=== PATIENT | male | born 1950 | race Caucasian/White ===

== ENCOUNTER → 2017-08-12 14:32 | Outpatient (POV) | payer MEDICARE, SELFPAY | PROVIDERS: Visit Provider Nurse Practitioner Acute Care | DX: Z00.00 Encounter for general adult medical examination without abnormal findings (principal) ==

== ENCOUNTER 2017-09-23 08:45 | Day surgery (SDC) | payer MEDICARE, SELFPAY ==
[2017-09-17 09:35] VITALS: BMI 33.4
[2017-09-23] VITALS (7 sets, daily range): BP systolic 99–141; BP diastolic 58–79; PULSE 50–69; RESP 18–20; TEMP 36.9–37; O2SAT 96–99
--- NOTE | 2017-09-23 10:25 | P.PCN_ITS ---
[facility] Procedure Note Procedure Note:: Upper Endoscopy Procedure Report: Esophagogastroduodenoscopy with cold biopsies Endoscopost: Rell Marques II, MD Referring Physician: Omid Gamino MD Date of Procedure: September 23, 2017 Equipment: Olympus GIF 180 standard upper endoscope Sedation: MAC sedation Indications: Mr. Louie is a 67-year-old gentleman dyspepsia. He reports epigastric and some lower abdominal comfort. He reports bloating, belching and some early satiety. He reports no nausea or dysphagia. He has had some weight loss. He reports no melena. He does have some obstipation which improved with the fiber bowel regimen (MiraLAX plus Metamucil) and probiotics. 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 He did have panendoscopy with Dr. Omid Gamino in October 2016. Procedure: Prior to the procedure, a history and physical exam was performed, and patient' s medications and allergies were reviewed. The risks, benefits and alternatives of the sedation and procedure were discussed with the patient. All questions were answered and informed consent was obtained. The patient was brought to the procedure room. Patient identification and proposed procedure were verified by the physician and the nurse. The patient was placed in a left lateral decubitus position and the scope was passed under direct vision. Throughout the procedure, the patient's blood pressure, pulse, and oxygen saturations were monitored continuously. The upper GI endoscopy was accomplished without difficulty. The patient tolerated the procedure well. Findings: The scope was passed directly into the upper esophagus and advanced to the third portion of the duodenum. The post bulbar duodenum and duodenal bulb were normal with normal mucosa and conniventes. The scope was withdrawn through a normal duodenal bulb and pylorus into the stomach. There was moderate bile reflux with linear erythema of the antrum and body of the stomach. The remainder of the antrum, body and fundus of the stomach were grossly normal. Upon retroflexion there was a very small 1-2 cm hiatal hernia. 2 biopsies were taken in the antrum and along the lesser curvature for histology to rule out gastritis and/or H pylori. The scope was then withdrawn into the esophagus. There was no evidence of reflux esophagitis. There was a serrated Z line and biopsies were taken at the squamocolumnar junction to rule out intestinal metaplasia. There were some tertiary contractions and mild esophageal dysmotility. The remainder of the esophageal mucosa was normal. Impression: 1. Nonerosive GERD with mild esophageal dysmotility and very small sliding hiatal hernia 2. Bile reflux with moderate linear reactive gastritis Plan: I will follow up the biopsies. I do feel that the patient has functional dyspepsia and functional bowel disease with some SIBO. I will discuss additional dietary measures and treatment options. I will proceed with colonoscopy for further evaluation.
--- NOTE | 2017-09-23 10:47 | HMH.PROC ---
[facility] Procedure Note Procedure Note:: Colonoscopy Procedure Report: Colonoscopy with cold snare polypectomy Endoscopist: Rell Marques II, MD Referring physician: Omid Gamino MD Date of Procedure: September 23, 2017 Equipment: Olympus 180 variable stiffness pediatric colonoscope Sedation: MAC sedation Indication: Mr. Louie is a 67-year-old gentleman with epigastric and some lower abdominal pain and discomfort. The patient has had some obstipation and intentional weight loss. He reports no rectal bleeding or family history of colon cancer. He did have a colonoscopy in October 2016 and had left-sided diverticulosis but no colon polyps. Because of his pain and weight loss, colonoscopy is repeated diagnostically. Procedure: Prior to the procedure, a history and physical exam was performed, and patient's medications and allergies were reviewed. The risks, benefits and alternatives of the sedation and procedure were discussed with the patient. All questions were answered and informed consent was obtained. The patient was brought to the procedure room. Patient identification and proposed procedure were verified by the physician and the nurse. The patient was placed in a left lateral decubitus position and the scope was passed under direct vision. Throughout the procedure, the patient's blood pressure, pulse, and oxygen saturations were monitored continuously. The colonoscopy was accomplished without difficulty. The patient tolerated the procedure well. Findings: On digital rectal examination there was normal rectal tone. There were no external hemorrhoids. The prostate was 1-2+, mildly firm but symmetric without nodules. The colonoscope was introduced through the anal canal to the rectum and advanced to the cecum. The ileocecal valve and appendiceal orifice were identified. The scope was advanced a short distance into the ileum which appeared grossly normal. The scope was then withdrawn into the colon. There were 2 colon polyps identified in the ascending colon ?2. These ranged in size from 7-8 mm and were all removed via cold snare polypectomy. There were scattered diverticuli throughout the descending and sigmoid colon (LEFT colon). The rectum itself was normal. Upon retroflexion within the rectum there were grade 1 internal hemorrhoids. Impression: 1. Colonic polyps ?2 2. Left-sided diverticulosis 3. Grade 1 internal hemorrhoids Plan: I would encourage the patient to resume fiber bowel regimen (MiraLAX plus Metamucil) and dietary measures. We will discuss additional treatment options. I will follow-up the polyp histology and recommend repeat screening/surveillance colonoscopy again in 5 years if the polyps are adenomatous.
--- NOTE | 2017-09-23 10:50 | P.PCN_ITS ---
[facility] Procedure Note Procedure Note:: Colonoscopy Procedure Report: Colonoscopy with cold snare polypectomy Endoscopist: Rell Marques II, MD Referring physician: Omid Gamino MD Date of Procedure: September 23, 2017 Equipment: Olympus 180 variable stiffness pediatric colonoscope Sedation: MAC sedation Indication: Mr. Louie is a 67-year-old gentleman with epigastric and some lower abdominal pain and discomfort. The patient has had some obstipation and intentional weight loss. He reports no rectal bleeding or family history of colon cancer. He did have a colonoscopy in October 2016 and had left-sided diverticulosis but no colon polyps. Because of his pain and weight loss, colonoscopy is repeated diagnostically. Procedure: Prior to the procedure, a history and physical exam was performed, and patient' s medications and allergies were reviewed. The risks, benefits and alternatives of the sedation and procedure were discussed with the patient. All questions were answered and informed consent was obtained. The patient was brought to the procedure room. Patient identification and proposed procedure were verified by the physician and the nurse. The patient was placed in a left lateral decubitus position and the scope was passed under direct vision. Throughout the procedure, the patient's blood pressure, pulse, and oxygen saturations were monitored continuously. The colonoscopy was accomplished without difficulty. The patient tolerated the procedure well. Findings: On digital rectal examination there was normal rectal tone. There were no external hemorrhoids. The prostate was 1-2+, mildly firm but symmetric without nodules. The colonoscope was introduced through the anal canal to the rectum and advanced to the cecum. The ileocecal valve and appendiceal orifice were identified. The scope was advanced a short distance into the ileum which appeared grossly normal. The scope was then withdrawn into the colon. There were 2 colon polyps identified in the ascending colon ?2. These ranged in size from 7-8 mm and were all removed via cold snare polypectomy. There were scattered diverticuli throughout the descending and sigmoid colon (LEFT colon). The rectum itself was normal. Upon retroflexion within the rectum there were grade 1 internal hemorrhoids. Impression: 1. Colonic polyps ?2 2. Left-sided diverticulosis 3. Grade 1 internal hemorrhoids Plan: I would encourage the patient to resume fiber bowel regimen (MiraLAX plus Metamucil) and dietary measures. We will discuss additional treatment options. I will follow-up the polyp histology and recommend repeat screening/ surveillance colonoscopy again in 5 years if the polyps are adenomatous.
--- NOTE | 2017-09-23 15:38 | P.PN_ITS ---
[facility] Anesthesia Checklist - Patient Identification Patient Identification: Arm Band - Structural Data Admitted From: Home Planned Operative Procedure/s: egd/colonoscopy Consent for Planned Operative Procedure(s) Verified: Yes Verified Documents: Surgical Consent, History and Physical - NPO Status Verified Time NPO: 00:00 - Additional verifications Anesthesia Reactions: No - Airway Assessment C-Spine Mobility Assessed: Yes (mp2) TMJ Mobility Assessed: Yes Dentition: Good Dentition - Neurological Assessment Level of Consciousness: Awake, Alert - Anesthesia Plan Anesthesia Risk discussed: Yes Anesthesia Plan: Verified ASA Class: II Anesthesia Type: MAC [facility] Anesthesia HX I have reviewed the patient's past medical history: Yes Medical History: Reports:: Arrhythmia, Hypertension Denies:: Diabetes Mellitus Type 1, Diabetes Mellitus Type 2, Internal Pacemaker, Lung Disease, Seizures Other Surgeries: Yes: Other (dennys). No: Pacemaker
== END 2017-09-23 11:50 | disposition home or self-care (01) ==
LOC: OUTP 08:46
PROVIDERS: PCP Family Medicine; Visit Provider Internal Medicine Gastroenterology
PROC: 0DJ08ZZ Inspection of Upper Intestinal Tract, Via Natural or Artificial Opening Endoscopic (ICD-10-PCS; CPT 43235; principal; 2017-09-23 09:30)
DX: K63.5 Polyp of colon (principal); K57.30 Diverticulosis of large intestine without perforation or abscess without bleeding; K64.0 First degree hemorrhoids; K21.9 Gastro-esophageal reflux disease without esophagitis; K44.9 Diaphragmatic hernia without obstruction or gangrene
CPT/HCPCS: 43239; 45385; 88305

== ENCOUNTER → 2017-11-11 11:17 | Outpatient (CLI) | payer MEDICARE, SELFPAY ==
--- NOTE | 2017-11-11 11:23 | XR_ITS ---
XR shoulder RT min 2V HISTORY: Right shoulder pain ITS.REASON: RT SIDED NECK PAIN,RT SHOULDER PAIN ORDERING PHYSICIAN: Keke Avila PATIENT AGE: 67 years COMPARISON: FINDINGS: No fracture or dislocation. There is some increased density in the infraacromial region on the AP view suggesting some spurring of the inferior acromion. This may result in impingement symptomatology and may be further evaluated with MRI if clinically warranted. No other significant anomalies evident. IMPRESSION: Spurring along the anterior acromial region which may result in impingement upon the rotator cuff. This may represent soft tissue calcification as well. Otherwise negative
--- NOTE | 2017-11-11 11:23 | XR_ITS ---
EXAM: XR cervical spine 5V HISTORY: ITS.REASON: RT SIDED NECK PAIN,RT SHOULDER PAIN ORDERING PHYSICIAN: Keke Avila PATIENT AGE: 67 years COMPARISON: 08/29/2016 FINDINGS: There is straightening of the cervical lordosis which may be due to patient positioning or muscle spasm. Degenerative disc disease is present at C5-C6 and to a lesser degree at C6-C7. Foraminal narrowing is noted on the right at C5-C6. No fracture or dislocation. No lytic or blastic change. There head is slightly tilted toward the left. No evidence of cervical rib. Overall no significant change IMPRESSION: 1. Degenerative disc disease C5-C6 and C6-C7. 2. Mild right foraminal narrowing at C5 C6. 3. Straightening of cervical lordosis.
== END ==
PROVIDERS: PCP Family Medicine; Visit Provider Nurse Practitioner
DX: M54.2 Cervicalgia (principal); M25.511 Pain in right shoulder
CPT/HCPCS: 72050; 73030

== ENCOUNTER → 2017-12-20 14:50 | Outpatient (CLI) | payer MEDICARE, SELFPAY ==
--- NOTE | 2017-12-20 14:51 | MR_ITS ---
MR shoulder RT wo con HISTORY: Right shoulder pain with limited range of motion ITS.REASON: right shoulder pain ORDERING PHYSICIAN: Adriano Hernandez MD PATIENT AGE: 67 years Comparison: 11/11/2017 TECHNIQUE: Standard multiplanar multiecho sequences are performed without contrast. FINDINGS: Prominent hypertrophic changes are present at the acromioclavicular joint. There is increased T2 signal in the supraspinatus tendon consistent with tendinopathy/tendinosis. Hypertrophic changes are present along the upper aspect of the acromion with subacromial stenosis. There is increased T2 signal along the inferior surface of the supraspinatus tendon consistent with partial tear. There does appear to be some fibers intact. A complete tear is not felt to be present. There is also increased T2 signal of the infraspinatus tendon distally consistent with tendinopathy/tendinosis with some increased T2 signal involving the supraspinatus tendon distally consistent partial tear. No evidence of labral tear. There is tendinopathy/tendinosis of the subscapularis tendon. Teres minor tendon is intact. Bicipital tendon is in place. Shoulder joint effusion with loculated fluid in the subcoracoid region consistent for situs. Hypertrophic changes are present at the humeral head along the greater tuberosity. IMPRESSION: 1. Tendinopathy/tendinosis of the supraspinatus, emphysematous, and subscapularis tendons. 2. Partial tears of the supraspinatus and infraspinatus tendon. A complete tear with muscle and tendinous retraction is not identified. 3. Hypertrophic changes of the acromioclavicular joint with subacromial stenosis along with hypertrophic changes of the greater tuberosity of the humerus. 4. Subcoracoid bursitis
== END ==
PROVIDERS: PCP Family Medicine; Visit Provider Orthopaedic Surgery
DX: M25.511 Pain in right shoulder (principal)
CPT/HCPCS: 73221

== ENCOUNTER → 2018-10-16 14:45 | Outpatient (CLI) | payer MEDICARE, SELFPAY ==
--- NOTE | 2018-10-16 14:56 | XR_ITS ---
XR abdomen min 2V HISTORY: Abdominal pain ITS.REASON: GSTROENTERITIS ORDERING PHYSICIAN: Lew Culver MD PATIENT AGE: 68 years COMPARISON: None FINDINGS: There are gas-filled loops of small and large bowel mainly large bowel loops noted. Ileus or enteritis is a consideration. No free air. There are a few scattered air-fluid levels. IMPRESSION: Gas-filled loops of small and large bowel with a few air-fluid levels suggesting enteritis
== END ==
PROVIDERS: PCP Family Medicine; Visit Provider Family Medicine
DX: K52.9 Noninfective gastroenteritis and colitis, unspecified (principal)
CPT/HCPCS: 74019

== ENCOUNTER → 2019-07-21 15:52 | Outpatient (CLI) | payer MEDICARE, SELFPAY ==
--- NOTE | 2019-07-21 15:56 | MR_ITS ---
PROCEDURE: MR CERVICAL SPINE WO CON CLINICAL INDICATION: UPPER BACK PAIN, NECK PAIN Multilevel degenerative disc disease with greatest neural impingement appearing to be at C5-6 where there is disc/osteophyte complex with central canal and right foraminal stenoses. COMPARISON: No exams were available for comparison TECHNIQUE: Standard multiplanar multiecho sequences are performed without contrast. 3-D MIP and myelographic images are also rendered and reviewed FINDINGS: Cervical vertebrae are of normal height and alignment. No malignant bone marrow signal is noted. There is mild discogenic endplate disease inferiorly at C5. There is degenerative loss E 5-6 C6-7 disc space heights. Cerebellar tonsils are in anatomic position. At C2-3 there is disc bulge greatest centrally with mild extradural mass effect on the thecal sac with mild central spinal canal stenosis. At C3-4 a small focal central disc protrusion is noted causing focal convex mass effect on the thecal sac. A tiny herniation is suspected. There is no central canal stenosis. At C4-5 focal central disc protrusion compatible with herniation is noted with convex mass effect on the thecal sac. There is no central canal stenosis. At C5-6 there is disc osteophyte complex causing extradural mass effect on the thecal sac with central spinal canal stenosis and right foraminal stenosis. Mild spinal cord contour deformity without cord in trapped min is noted. At C6-7 there is disc osteophyte complex with extradural mass effect on the thecal sac with mild central spinal canal stenosis. Incidental note is made of degenerative discs causing extradural mass effect on the thecal sac at T1-T2 and to greater extent T2-T3. Central spinal canal stenosis appears present at T2-T3. No axial images are obtained through these levels. Dedicated thoracic spine MRI may be useful to further evaluate. IMPRESSION: Multilevel degenerative disc and facet disease with greatest neural impingement appearing to be at C5-6 where there is central canal and right foraminal stenosis. Dictated by: Yifan Vaughn 07/21/2019 18:32 Electronically signed by Yifan Vaughn in [place] 07/21/2019 18:32
== END ==
PROVIDERS: PCP Family Medicine; Visit Provider Nurse Practitioner
DX: M54.2 Cervicalgia (principal); M54.9 Dorsalgia, unspecified
CPT/HCPCS: 72141; 76376

== ENCOUNTER → 2019-09-04 15:05 | Outpatient (CLI) | payer MEDICARE, SELFPAY ==
--- NOTE | 2019-09-04 15:08 | MR_ITS ---
PROCEDURE: MR THORACIC SPINE WO CON CLINICAL INDICATION: T-SPINE CANAL STENOSIS Mid back pain, spinal stenosis COMPARISON: No exams were available for comparison TECHNIQUE: Routine multiplanar multi echo sequences are performed without gadolinium enhancement. FINDINGS: There is normal alignment. There is mild multilevel degenerative disc disease with decrease in the disc spaces and disc desiccation. T2-T3: Degenerate disc disease with bulging disc. There is narrowing of the canal but no obvious impingement upon the cord which was suspected from the cervical spine MRI. Mild degenerative disc disease T3-T4 and T4-T5. T5-T6: There is a small central disc herniation at T5-T6 which does cause some mild impingement upon the cord with minimal contour deformity of the anterior aspect of the cord. There is canal stenosis at this level at 9 mm. T7-T8: There is a small central disc protrusion without impingement. There is narrowing of the canal at 10 mm. T8-T9, T9-T10 show mild degenerative disc disease with Schmorl's nodes and endplate irregularity. T10-T11: Small right paracentral disc protrusion without impingement. T11-T12: Small right paracentral disc protrusion without impingement T11-T12: There is mild acute appearing superior endplate compressive changes at T12 with loss of height centrally of approximately 10 percent without retropulsion. There is increased T2 signal of the disc at this level as well IMPRESSION: Abnormal MRI of the thoracic spine with multilevel thoracic spondylosis with multilevel degenerative disc disease including bulging disc at T2-T3 the with borderline canal stenosis, small central disc herniation at T5-T6 with mild impingement with canal stenosis, small central disc protrusion at T7-T8 with canal stenosis, small right paracentral disc protrusion at T10-T11 and T11-T12 without impingement, and mild acute appearing superior endplate compressive change at T12 without retropulsion. PLEASE SEE ABOVE FOR DETAILED DESCRIPTION AT EACH LEVEL 1. Dictated by: Jermain Schmitt MD 09/05/2019 09:02 Electronically signed by Jermain Schmitt MD in [place] 09/05/2019 09:02
== END ==
PROVIDERS: PCP Family Medicine; Visit Provider Psychiatry & Neurology Clinical Neurophysiology
DX: M51.34 Other intervertebral disc degeneration, thoracic region (principal)
CPT/HCPCS: 72146

== ENCOUNTER → 2019-11-12 13:47 | Outpatient (CLI) | payer MEDICARE, SELFPAY ==
[2019-11-12 14:14] LABS: Basophils % 0.5 % (0.1-2.0); Eosinophils # 0.1 K/mm3 (0.0-0.4); Eosinophils % 1.4 % (0.1-12.0); Hematocrit 46.8 % (42.0-52.0); Hemoglobin 14.9 g/dL (14.1-18.0); Lymphocytes # 2.2 K/mm3 (0.7-4.5); Lymphocytes % 28.1 % (10-50); Mean Corpuscular HGB Conc 31.7 g/dL (31.8-35.4); Mean Corpuscular Hemoglobin 30.8 pg (27.0-31.2); Mean Platelet Volume 8.4 fl (7.4-10.4); Monocytes # 0.5 K/mm3 (0.1-1.0); Neutrophils # 5.1 K/mm3 (1.8-7.8); Neutrophils % 64.1 % (37.0-80.0); Platelet Count 211 K/mm3 (142-424); Red Blood Count 4.83 M/mm3 (4.60-6.20); Red Cell Distribution Width 13.6 % (11.5-17.5); White Blood Count 7.9 K/mm3 (4.8-10.8)
[2019-11-12 14:25] LABS: Chloride 108 mmol/L (98-107); Potassium 4.3 mmoL/L (3.5-5.1); Sodium 138 mmol/L (136-145)
--- NOTE | 2019-11-12 14:26 | ECG_ITS ---
APPROVED REPORT Exam: Resting ECG HR:53 bpm ECG Measurements Heart Rate 53 AXES GA 174 P 67 QRSd 96 QRS 73 QT 488 T 202 QTc 457 <Conclusion> Sinus bradycardia ST & Marked T wave abnormality, consider anterolateral ischemia Abnormal ECG Electronically signed by : Lew Jarrell, 11/13/2019 06:31:29
[2019-11-12 14:28] LABS: Blood Urea Nitrogen 16 mg/dl (9-20); Estimated Glomerular Filt Rate 74 ml/min (>60); GFR (African American) 89 ML/MIN (>60)
[2019-11-12 14:29] LABS: Anion Gap 10.3 mEq/L (5-15); Carbon Dioxide 24 mmol/L (22.0-30.0)
--- NOTE | 2019-11-12 14:34 | MR_ITS ---
PROCEDURE: MR LUMBAR SPINE WO CON CLINICAL INDICATION: LUMBAR PAIN Low back pain for 6 months, bilateral leg pain and feet numbness COMPARISON: MR THORACIC SPINE WO CON from 09/04/2019 TECHNIQUE: Standard multiplanar multiecho sequences are performed without contrast. 3-D MIP and myelographic images are also rendered and reviewed FINDINGS: There is normal alignment. The spinal cord ends at the L2 level. T11-T12: There is mild wedge compression changes involving the T12 vertebral body with loss of height centrally and anteriorly of approximately 20 percent with a Schmorl's node along the superior endplate of T12. The wedge compression changes have developed since an MRI of 09/04/2019 of the thoracic spine. No retropulsed fragments are evident. There is slight increased T2 signal involving the T2 vertebral body centrally and anteriorly. There is some cortical buckling of the anterior superior aspect of the T12 vertebral body. T12-L1: Unremarkable. L1-L2: Minimal bulging disc slightly eccentric toward the right with facet ligamentum hypertrophy with moderate right lateral recess and foraminal narrowing L2-L3: Mild degenerative disc disease with bulging disc along with facet and ligamentum hypertrophy with mild bilateral lateral recess and mild bilateral foraminal narrowing L3-L4: Degenerate disc disease with bulging disc along with facet and ligamentum hypertrophy with severe left-sided foraminal narrowing and mild right foraminal narrowing. There is some mild bone marrow edema along the inferior aspect of the L3 vertebral body. L4-5: Mild concentric bulging disc along with facet and ligamentum hypertrophy with moderate right and severe left-sided foraminal narrowing. L5-S1: Moderate facet and ligamentum hypertrophy with moderate right and severe left-sided foraminal narrowing. IMPRESSION: 1. Abnormal MRI of the lumbar spine with multiple levels of bulging disc and facet and ligamentum hypertrophy with lateral recess and foraminal narrowing. Please see above for detailed description at each level. 2. Mild acute wedge compression changes of T12 without retropulsion Dictated by: Jermain Schmitt MD 11/13/2019 10:20 Electronically signed by Jermain Schmitt MD in [place] 11/13/2019 10:20
[2019-11-12 14:36] LABS: Calcium 9.4 mg/dl (8.4-10.2); Glucose 94 mg/dl (74-100)
== END ==
PROVIDERS: Otolaryngology; PCP Family Medicine; Visit Provider Orthopaedic Surgery
DX: Z01.818 Encounter for other preprocedural examination (principal); M54.5 Low back pain
CPT/HCPCS: 36415; 72148; 76376; 80048; 85025; 93005

== ENCOUNTER → 2019-11-17 10:11 | Outpatient (CLI) | payer MEDICARE, SELFPAY ==
[2019-11-18 16:07] LABS: Covid-19 Nasal PCR Sendout Lex NOT DETECTED
== END ==
PROVIDERS: Visit Provider Otolaryngology
DX: Z01.818 Encounter for other preprocedural examination (principal); H93.90 Unspecified disorder of ear, unspecified ear; C44.209 Unspecified malignant neoplasm of skin of left ear and external auricular canal
CPT/HCPCS: U0004

== ENCOUNTER 2019-11-19 07:26 | Day surgery (SDC) | payer MEDICARE, SELFPAY ==
[2019-11-18 10:25] VITALS: BMI 32.5
[2019-11-19 07:45] VITALS: BP 146/76; PULSE 56; RESP 20; TEMP 36.8; O2SAT 99
--- NOTE | 2019-11-19 08:21 | HMH.ANESCL ---
[facility] Anesthesia Checklist - Patient Identification Patient Identification: Arm Band, Verbal (Name & ) - Structural Data Admitted From: Home Planned Operative Procedure/s: lesion Consent for Planned Operative Procedure(s) Verified: Yes Verified Documents: History and Physical - NPO Status Verified Time NPO: 00:00 - Chart Verification Results Verified: CBC, BMP - Additional verifications Patient : No Anesthesia Reactions: No Hx Blood Transfusions: No Blood Transfusion Reaction: No Cephalosporin Allergy: No Previous Colonoscopy: Yes - Cardiovascular Assessment Heart Sounds: S1 & S2 Pulse Strength: Baseline Pulse Rhythm: Regular Peripheral Edema: No - Airway Assessment C-Spine Mobility Assessed: Yes TMJ Mobility Assessed: Yes Dentition: Good Dentition - Neurological Assessment Level of Consciousness: Awake, Alert, Appropriate Hx Seizures: No Numbness or tingling in extremities: No - Anesthesia Plan Anesthesia Risk discussed: Yes Anesthesia Plan: Verified ASA Class: III Anesthesia Type: MAC [facility] History I have reviewed the patient's past medical history: Yes Medical History: Reports:: Arrhythmia, Atrial Fibrillation, Gastroesophageal Reflux Disease(GERD), Hyperlipidemia, Hypertension Denies:: Cancer, Diabetes Mellitus Type 1, Diabetes Mellitus Type 2, Internal Pacemaker, Lung Disease, MRSA, Seizures *Have you ever received a pneumonia vaccine?: Yes *Have you received a flu vaccine this season?: Yes Other Medical History: Reports: Arthritis. Denies: Blood Transfusion Reaction Anesthesia experience/problems:: none Other Surgeries: Yes: Other (dennys). No: Pacemaker Amputation: No Fractures: No - *Social History Educational Level: Completed GED/General Educational Development Smoking Status: Never smoker Tobacco Type: smokeless tobacco Alcohol Intake: never Substance Use Type: denies use *Occupational Status:: retired Housing: house Household Members: spouse *Travel in the last 8 weeks: None Family Hx:: Unable to obtain
[2019-11-19 09:55] VITALS: BP 110/52; PULSE 55; RESP 18; TEMP 36.3; O2SAT 95
[2019-11-19 10:10] VITALS: BP 112/64; PULSE 52; RESP 18; TEMP 36.3; O2SAT 94
[2019-11-19 10:29] VITALS: BP 125/70; PULSE 50; RESP 18; TEMP 36.3; O2SAT 95
--- NOTE | 2019-11-19 13:31 | P.OP_ITS ---
Date of procedure: 11/19/19 Pre-op Diagnosis:: 1. Lesion right ear 2 cm 2. Malignant neoplasm left ear 3 cm Post-op Diagnosis:: same Procedure performed:: 1. Removal of neoplasm right ear 2 cm with tissue rearrangement 2. Removal of lesion left ear 3 cm with tissue rearrangement Surgeon:: Wei Lowe MD MACHINE CRATER:: Mayur Olvera Anesthesia: MAC Estimated blood loss (mL): 6 Operative findings:: same Operative note:: With the patient under a MAC anesthesia the right and the left ear were prepped and draped, the perilesional areas were infiltrated with a total of 6 cc of 2% lidocaine containing epinephrine. The lesion on the right ear was marked out and the pauly out measured 2 cm and was incised and the lesion was excised to the level of the perichondrium, superior and inferior incisions were made and a tissue rearrangement geometric plastic repair was done with interrupted 4-0 nylon sutures a Dermabond dressing was applied. The lesion on the left ear measured 3 cm the pauly out was incised and the lesion was excised and submitted. Bleeding was stopped with bipolar cautery. Blood loss for all the procedure w as less than 10 cc. Incisions were made and a tissue rearrangement geometric plastic repair was done with interrupted 4-0 nylon sutures. Dressings were applied and the patient was sent to recovery in good general condition. Condition: stable Disposition: PACU Complications:: none
== END 2019-11-19 10:29 | disposition home or self-care (01) ==
LOC: OR 07:28
PROVIDERS: PCP Family Medicine; Visit Provider Otolaryngology
PROC: (CPT 14060; principal; 2019-11-19 09:00)
DX: C44.219 Basal cell carcinoma of skin of left ear and external auricular canal; L57.0 Actinic keratosis; Z79.899 Other long term (current) drug therapy; I48.91 Unspecified atrial fibrillation; K21.9 Gastro-esophageal reflux disease without esophagitis; E78.5 Hyperlipidemia, unspecified; I10 Essential (primary) hypertension; I49.9 Cardiac arrhythmia, unspecified; Z87.891 Personal history of nicotine dependence; M19.90 Unspecified osteoarthritis, unspecified site; Z82.49 Family history of ischemic heart disease and other diseases of the circulatory system; Z83.438 Family history of other disorder of lipoprotein metabolism and other lipidemia
CPT/HCPCS: 14060 ×2; 88305; 96374

== ENCOUNTER → 2020-10-17 12:43 | Outpatient (CLI) | payer MEDICARE, SELFPAY ==
--- NOTE | 2020-10-17 12:46 | CT_ITS ---
PROCEDURE: CT ABDOMEN PELVIS WO CON CLINICAL INDICATION: LOWER ABD PAIN Bilateral lower quad pain Groin pain COMPARISON: CT ABDPELW CT ABD PELVIS W/ CONTRAST from 03/15/2016 TECHNIQUE: Axial images obtained with sagittal and coronal reformats. All CT scans at the facility use one or more dose reduction, viz: automated exposure control, ma/kV adjustment per patient size (including targeted exams where dose is matched to indication, i.e. head), or iterative reconstruction technique. FINDINGS: LOWER THORAX: No acute finding ABDOMEN & PELVIS: Prior cholecystectomy. The liver, spleen, and pancreas have an unremarkable appearance. Minimal calcification noted in the left adrenal gland. No adrenal mass. There is a 4 mm nonobstructing stone in the lower pole of the left kidney. No ureteral calculi. No hydronephrosis. The there is mild dilatation of the infrarenal portion of the abdominal aorta measuring approximately 3 cm. No evidence of retroperitoneal hemorrhage. There is a mild amount of retained colonic feces. No intestinal obstruction or free air. No evidence of appendicitis. There is colonic diverticulosis but no evidence of diverticulitis. Urinary bladder wall is thickened. Prostate is slightly prominent at 4.5 cm. Degenerative changes are present in the lumbar spine. There is mild wedging of T12 which appears chronic having developed in the interval. Schmorl's node along the superior endplate of T12 IMPRESSION: 1. There is mild urinary bladder wall thickening which may be seen with incomplete distension, chronic outflow obstruction, or cystitis. 2. Nonobstructing left kidney stone. 3. Mild amount of retained colonic feces. 4. Mild dilatation of the abdominal aorta at 3 cm. Dictated by: Jermain Schmitt MD 10/18/2020 14:49 Jermain Schmitt MD in [place] 10/18/2020 14:49
== END ==
PROVIDERS: PCP Family Medicine; Visit Provider Family Medicine
DX: R10.30 Lower abdominal pain, unspecified (principal)
CPT/HCPCS: 74176

== ENCOUNTER → 2021-09-05 14:43 | Outpatient (CLI) | payer MEDICARE, SELFPAY ==
--- NOTE | 2021-09-05 14:57 | XR_ITS ---
FINAL REPORT CLINICAL HISTORY: LT RIB PAIN FINDINGS: Two views of the chest were obtained. The heart size and pulmonary vascularity are within normal limits. The mediastinum is normal. There is mild bibasilar atelectasis or scarring. There is no pneumothorax. There are mild degenerative changes of the thoracic spine. IMPRESSION: Mild bibasilar atelectasis or scarring. Reviewed, Interpreted and Dictated by Omid Alfredo III, MD Transcribed by Joyce Victor Authenticated by Omid Alfredo III, MD on 09/05/2021 04:14:56 PM [facility]
== END ==
PROVIDERS: PCP Family Medicine; Visit Provider Family Medicine
DX: R07.81 Pleurodynia (principal)
CPT/HCPCS: 71046

== ENCOUNTER 2023-08-07 11:21 | Outpatient (CLI) | payer MEDICARE, SELFPAY ==
[2023-08-07 11:32] LABS: Adenovirus F 40/41, stool Not Detected (NotDetected); Astrovirus Not Detected (NotDetected); Campylobacter Not Detected (NotDetected); Clostridium Difficile A/B, PCR Not Detected (NotDetected); Cryptosporidium Not Detected (NotDetected); Cyclospora Cayetanesis Not Detected (NotDetected); Entamoeba histolytica Not Detected (NotDetected); Enteroaggregative E coli Not Detected (NotDetected); Enteropathogenic E coli Not Detected (NotDetected); Enterotoxigenic E coli Not Detected (NotDetected); Giardia lamblia Not Detected (NotDetected); Norovirus Not Detected (NotDetected); Plesimonas Shigalloides, PCR Not Detected (NotDetected); Rotavirus A Not Detected (NotDetected); Salmonella, PCR Not Detected (NotDetected); Sapovirus Not Detected (NotDetected); Shiga-like toxin E coli Not Detected (NotDetected); Shigella Enterovasive E coli Not Detected (NotDetected); Vibrio Cholerae Not Detected (NotDetected); Vibrio, PCR Not Detected (NotDetected); Yersinia Entercolitica, PCR Not Detected (NotDetected)
== END 2023-08-07 23:59 ==
LOC: LAB.DROPOF 11:22
PROVIDERS: PCP Family Medicine; Visit Provider Nurse Practitioner Family
DX: R19.7 Diarrhea, unspecified (principal)
CPT/HCPCS: 87506

== ENCOUNTER 2023-09-18 14:33 | Outpatient (CLI) | payer MEDICARE, SELFPAY ==
--- NOTE | 2023-09-18 14:50 | XR_ITS ---
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 There is mild chronic wedging of T12. There is no malalignment. There is moderate degenerative change with multilevel osteophytes. Vacuum phenomenon is noted at L3-4. IMPRESSION: Degenerative changes without acute process. Reviewed, Interpreted and Dictated by Omid Alfredo III, MD Transcribed by Tammie Gongora Authenticated and [facility]
== END 2023-09-18 23:59 ==
LOC: RAD 14:36
PROVIDERS: PCP Family Medicine; Visit Provider Family Medicine
DX: M54.50 Low back pain, unspecified (principal)
CPT/HCPCS: 72110

== ENCOUNTER 2023-10-22 06:27 | Day surgery (SDC) | payer MEDICARE, SELFPAY ==
[2023-10-22] VITALS (7 sets, daily range): BP systolic 123–136; BP diastolic 58–66; PULSE 48–52; RESP 16–18; TEMP 36.6–36.9; O2SAT 97–100; BMI 31.7
[2023-10-22] MEDS: TETRACAINE 0.5% OPTH SOL 15ML OP ×3 (06:43→06:44)
[2023-10-22] MEDS: SODIUM CHLORIDE 0.9% 10ML FLUSH SYRINGE 10 ML IV ×2 (06:43→07:53)
[2023-10-22] MEDS: PHENYLEPHRINE 2.5% OPHTH SOLN 2ML 0.0500000000000000028 ML OP ×3 (06:43→06:45)
[2023-10-22] MEDS: CYCLOPENTOLATE 2% OPHTH SOLN 2ML BOTTLE OP ×3 (06:43→06:45)
[2023-10-22] MEDS: MIDAZOLAM 2MG/2ML VIAL 1 MG IV (07:47)
[2023-10-22] MEDS: TIMOLOL 0.5% OPTH SOLN 5ML OP (07:52)
[2023-10-22] MEDS: TOBRAMYCIN/DEX OPTH SUSP 2.5ML OP (07:52)
[2023-10-22] MEDS: LIDOCAINE 1% PF 2ML AMPULE 2 ML IJ (07:52)
--- NOTE | 2023-10-22 11:14 | P.PCN_ITS ---
[facility] Procedure Note Date: 10/22/23 Time: 11:14 Procedure Note:: Preoperative Diagnosis: Cataract combined NS Cortical Complex [Left] Eye Postop diagnosis: same Operation: Microscopic phacoemulsification with intraocular lens implant [Left] Eye Specimen: None Blood Loss: None The patient was examined in the office with a complaint of poor vision in the [left] eye. The patient reports that this interferes with ADLs such as reading, watching TV and/or driving or the vision is like looking through a foggy haze and is very troubling. The patient was examined and found to have a visually significant cataract with best corrected vision of [20/400] by refraction and/or glare testing. Treatment options, risks and benefits were explained and the patient elected to have cataract surgery in an attempt to improve their vision. The patient had the eye anesthetized with topical tetracaine, the eye ways prepped and draped in the usual fashion for cataract surgery. A paracentesis and a temporal keratotomy were made. 0.2cc of 1% lidocaine PF was placed into the anterior chamber. And aqueous/viscoelastic exchange was done and a 360 degree capsulorexis was performed. Through hydrodissection and delineation with BSS on a cannula was done. The lens nucleus was phecoemulsified with CDE of [8.94]. Residual cortical material was removed using automated I&A The capsular bag was deepened with viscoelastica and a PCIOL was placed in the capsular bag with good centration and stability. Residual viscoelastic was removed using automated I&A. The keratotomy incision was hydrated with BSS on a cannula. The wound were checked and found to be water tight. IOP was checked digitally and adjusted as needed so as not to be too high. 1 drop of timolol 0.5%, ofloxacin, prednisolone acetate and ketorolac was instilled and eye shield taped over the eye. The patient was taken to recovery in good condition and will be seen postoperatively.
== END 2023-10-22 08:17 | disposition home or self-care (01) ==
PROVIDERS: PCP Family Medicine; Visit Provider Ophthalmology
PROC: (CPT 66984; principal; 2023-10-22 07:30)
DX: H25.812 Combined forms of age-related cataract, left eye (principal); I48.91 Unspecified atrial fibrillation; Z79.899 Other long term (current) drug therapy
CPT/HCPCS: 66984; V2632

== ENCOUNTER 2024-11-10 11:13 | Outpatient (CLI) | payer MEDICARE, SELFPAY ==
--- NOTE | 2024-11-10 11:19 | XR_ITS ---
PROCEDURE INFORMATION: Exam: XR Left Ribs with PA Chest Exam date and time: 11/10/2024 11:20 AM Age: 74 years old Clinical indication: Other: Pain left side, mid, anterior; Additional info: Pain in ribs TECHNIQUE: Imaging protocol: Radiologic exam of the left ribs with PA chest. Views: 3 views COMPARISON: CR XR CHEST 2V 09/05/2021 3:05 PM FINDINGS: Lungs: Unremarkable. No consolidation. Pleural spaces: Unremarkable. No pleural effusion. No pneumothorax. Heart/Mediastinum: Unremarkable. No cardiomegaly. Bones/joints: Unremarkable. IMPRESSION: No acute findings.
== END 2024-11-10 23:59 | disposition home or self-care (01) ==
LOC: RAD 11:16
PROVIDERS: PCP Family Medicine; Visit Provider Family Medicine
DX: R07.81 Pleurodynia (principal)
CPT/HCPCS: 71101